=== PATIENT | male | born 1990 | race Caucasian/White ===

== ENCOUNTER 2016-06-25 17:59 | Inpatient (IN) ==
[2016-06-25] MEDS ORDERED: Ondansetron 4 MG/2 ML VIAL IVP ONE (18:47)
[2016-06-25] MEDS ORDERED: 0.9 % Sodium Chloride 1,000 ML IVC ONE (18:47)
[2016-06-25] MEDS ORDERED: *HR* FentaNYL (PF) 100 MCG/2 ML VIAL IVP ONE (18:49)
--- NOTE | 2016-06-25 18:59 | Emergency Department Note ---
Disposition Clinical Impression: Calculus of kidney Disposition: Admitted As Inpatient Condition: Good Time of Disposition: 20:42 Abdominal Pain HPI - General Stated Complaint: RLQ Pain Time Seen by Provider: 06/25/16 18:08 Source: patient, family Nursing Notes Reviewed: Yes Vital Signs Reviewed: Yes - History of Present Illness HPI Narrative: Patient complaining of three-week history of right lower quadrant pain. He reports chills nausea vomiting with this and diarrhea. He states he has hematuria.. He has a pain that he describes right now as an aching. He states is about a 3 out of 10 but previously today was a 10 out of 10. He gets more pain whenever he tries to move. There are no alleviating factors. The pain does not radiate. Pain Scale: 10 - Related Data Home Medications Medication Instructions Recorded Confirmed CarBAMazepine [Tegretol] 800 mg PO HS 06/25/16 06/25/16 Lacosamide [Vimpat] 200 mg PO BID 06/25/16 06/25/16 Zonisamide [Zonegran] 200 mg PO HS 06/25/16 06/25/16 Allergies Allergy/AdvReac Type Severity Reaction Status Date / Time No Known Allergies Allergy Verified 03/18/16 20:15 Review of Systems: Patient states he has not checked his temperature however he has had chills. He denies a headache or blurry vision. He denies any trouble swallowing. He does report nausea vomiting diarrhea for 3 weeks. This is inconsistent with his right lower quadrant abdominal pain. He describes it currently as an ache. He states the pain gets worse whenever he tries to move. He also reports hematochezia but no episodes within the last week.. He also reports hematuria. He is also reporting a yellow stool with diarrhea. He denies any swelling numbness or tingling to his extremities. He denies any shortness of breath at this time. He states he does have hemoptysis that he has had "worked up." All systems ED: reviewed and negative except as stated. Abdominal Pain PMH - Past Medical History Medical history: Reports: seizures, other Psychiatric history: Reports: anxiety, depression, panic disorder - Social History Smoking status: Current every day smoker Alcohol use: Reports: none Drug use: Reports: cocaine, opiates, IVDU Physical Exam - General Limitations: no limitations General appearance: alert, in no apparent distress - Head Head exam: atraumatic, normocephalic, normal inspection - Eye Eye exam: Present: normal appearance, PERRL, EOMI. Absent: scleral icterus - ENT ENT exam: normal exam, normal oropharynx, mucous membranes moist - Neck Neck exam: Present: normal inspection, full ROM, trachea midline - Chest Chest inspection: Present: normal inspection, symmetric chest wall rise, other ( Tenderness on palpation. History of sternal fracture. Chronic.) - Cardiovascular Cardiovascular exam: Present: regular rate, normal rhythm, normal heart sounds - Abdominal Exam Abdominal exam: Present: soft, tenderness (To palpation of right lower quadrant. ), guarding (When palpating right lower quadrant.), normal bowel sounds. Absent : rebound, rigidity, Cervantes's sign, Rovsing's sign, tenderness at McBurney's Point - Extremities Exam Extremities exam: Present: normal inspection, full ROM, normal capillary refill. Absent: tenderness, pedal edema - Back Exam Back exam: Present: normal inspection, full ROM, CVA tenderness (R). Absent: tenderness, CVA tenderness (L) - Neurological Exam Neurological exam: Present: alert, oriented X3 - Psychiatric Psychiatric exam: Present: normal affect, anxious - Skin Skin exam: Present: warm, dry, intact, normal color Course Course Narrative: Well-appearing male holding the right side of his abdomen complaining of pain for 3-4 weeks. States he is having trouble urinating and has hematuria. He is also combining of nausea and vomiting. He states he has had diarrhea. He states he cannot keep any fluids or food down. He states that he is in pain at this time but it has been worse. He describes it as a 3 out of 10 that is an ache in his right lower quadrant. He does not appear as if he can get comfortable on the cot. He is not febrile while he is here however he states he has had chills at home. Basic lab work was done as well as EKG and CT. CT showed an obstructing right renal stone in the proximal ureter measuring 1.4 cm with moderate to severe hydronephrosis. Patient's creatinine is increased. We have consulted with urology and they will admit patient for pain control and symptom management. - Reevaluation(s) Reevaluation #1: Patient was given fentanyl initially for pain. He states this did help minimally with his pain. He initially refused any more medication. Later in his visit he states his pain did increase so we have ordered Dilaudid. He denies any nausea or vomiting at this time. Reevaluation #2: Patient states he is still in pain. We will order additional Dilaudid as well as a dose of Toradol. Time: 21:03 - Consultations Consultation #1: Spoke with Dr. Davis. He states he will admit the patient to his service. Time: 20:35 Vital Signs Temperature 97.5 F L 06/25/16 18:00 Pulse Rate 108 06/25/16 18:00 Respiratory Rate 18 06/25/16 18:00 Blood Pressure 183/109 06/25/16 18:00 O2 Sat by Pulse Oximetry 98 06/25/16 18:00 Temperature 97.5 F L 06/25/16 18:00 Pulse Rate 108 06/25/16 18:00 Respiratory Rate 18 06/25/16 18:00 Blood Pressure 183/109 06/25/16 18:00 O2 Sat by Pulse Oximetry 98 06/25/16 18:00 Oxygen Delivery Oxygen Delivery Room Air Abdominal Pain - Medical Records Medical records reviewed: Yes I reviewed the patient's medical records. - Lab Data Lab results reviewed: Yes I reviewed the patient's lab results. Result diagrams: 06/25/16 19:05 06/25/16 19:05 Lab Results 06/25/16 06/25/16 06/25/16 Range/Units 19:05 19:05 19:16 WBC 10.1 (4.3-11.1) K/mcL RBC 5.02 (4.19-5.50) M/mcL Hgb 14.7 (12.9-16.9) g/dL Hct 42.7 (37.5-50.1) % MCV 85.1 (83.0-100.0) fL MCH 29.3 (28.0-33.3) pg MCHC 34.4 (31.6-35.5) g/dL RDW 11.8 (11.5-14.5) % Plt Count 336 (140-400) K/mcL MPV 9.3 L (9.4-12.4) fL Immature Gran % 0.6 (0-4) % Seg Neutrophils % 73.1 % Lymphocytes % 17.6 % Monocytes % 7.8 % Eosinophils % 0.3 % Basophils % 0.6 % Neutrophils # 7.4 (1.6-8.9) K/mcL Lymphocytes # 1.8 (0.6-4.6) K/mcL Monocytes # 0.8 (0.0-1.3) K/mcL Eosinophils # 0.0 (0.0-0.6) K/mcL Basophils # 0.1 (0.0-0.2) K/mcL Immature Plt Fraction 3.6 (1.1-6.1) % Sodium 138 (136-145) mEq/L Potassium 3.7 (3.5-4.5) mEq/L Chloride 106 (98-109) mEq/L Carbon Dioxide 21 (19-29) mEq/L BUN 11 (8-26) mg/dL Creatinine 1.76 H (0.72-1.25) mg/dL Est GFR ( Amer) 57 L (> 60) Est GFR (Non-Af Amer) 47 L (> 60) BUN/Creatinine Ratio 6 (6-26) Glucose 121 H (70-99) mg/dL Calculated Osmolality 287 (280-300) Calcium 8.9 (8.6-10.8) mg/dL Total Bilirubin 0.6 (0.2-1.2) mg/dL Direct Bilirubin 0.1 (0.0-0.5) mg/dL Indirect Bilirubin 0.5 (0.0-1.2) mg/dL AST 9 (5-34) Units/L ALT 9 (0-55) Units/L Alkaline Phosphatase 121 (38-126) Units/L Serum Total Protein 7.2 (6.0-8.3) g/dL Albumin 4.2 (3.5-5.0) g/dL Globulin 3.0 (2.4-3.5) g/dL Albumin/Globulin Ratio 1.4 (1.1-2.2) Lipase 7 L (8-78) Units/L Urine Color Yellow (Yellow) Urine Clarity Clear (Clear) Urine pH 7.5 (5.0-8.0) pH Units Ur Specific [place] 1.013 (1.010-1.025) Urine Protein Negative (Neg-Trace) mg/dL Urine Glucose (UA) Normal (Normal) mg/dL Urine Ketones Negative (Negative) mg/dL Urine Blood Negative (Negative) Urine Nitrite Negative (Negative) Urine Bilirubin Negative (Negative) Urine Urobilinogen Normal (Normal) mg/dL Ur Leukocyte Esterase Negative (Negative) Ur Culture Indicated? NO (NO) - Radiology Data Radiology results reviewed: Yes I reviewed the patient's radiology results. I reviewed the images and the radiologist report. - EKG Data EKG attestation: Yes I reviewed and interpreted this EKG. EKG results narrative: Normal sinus rhythm at a rate of 83. CA interval is 169. QRS duration is 104. QT is 343. QTC is 383. No signs of acute ischemia. No Change from prior EKG dated 06/23/2015.
--- NOTE | 2016-06-25 19:04 | Emergency Department Note ---
START Narrative - START START: I examined this patient and my medical decision-making was reviewed with the PHLEBOTOMIST MEDICAL LAB ASSISTANT/PA/Advanced Practice Nurse/Resident Physician. I agree with the documented findings, disposition and treatment plan as described except to the extent set forth below. ED attending note: Patient seen with emergency medicine resident Dr Ross. We independently evaluated the patient. We independently had [id number] contact with the patient. Please see a copy of his note for details of the history and physical, evaluation, management and disposition of this emergency Department patient. 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 He has tenderness in the right lower quadrant voluntary guarding but no rebound. Has other symptoms such as possibly hematuria and bilious vomiting. He is afebrile with stable vital signs. Patient will get labs IV analgesics urinalysis and noncontrast abdominal pelvic CT scan. Disposition pending.
[2016-06-25 19:11] LABS: Basophils # 0.1 K/mcL (0.0-0.2); Basophils % 0.6 %; Eosinophils % 0.3 %; Hematocrit 42.7 % (37.5-50.1); Hemoglobin 14.7 g/dL (12.9-16.9); Immature Granulocytes % 0.6 % (0-4); Immature Platelets 3.6 % (1.1-6.1); Lymphocytes # 1.8 K/mcL (0.6-4.6); Lymphocytes % 17.6 %; Mean Corpuscular HGB Conc 34.4 g/dL (31.6-35.5); Mean Corpuscular Hemoglobin 29.3 pg (28.0-33.3); Mean Corpuscular Volume 85.1 fL (83.0-100.0); Mean Platelet Volume 9.3 fL (9.4-12.4); Monocytes # 0.8 K/mcL (0.0-1.3); Monocytes % 7.8 %; Neutrophils # 7.4 K/mcL (1.6-8.9); Platelet Count 336 K/mcL (140-400); Red Blood Count 5.02 M/mcL (4.19-5.50); Red Cell Distribution Width 11.8 % (11.5-14.5); Segmented Neutrophils % 73.1 %
[2016-06-25 19:21] LABS: Bilirubin,Urine Negative (Negative); Blood,Urine Negative (Negative); Clarity,Urine Clear (Clear); Color,Urine Yellow (Yellow); Glucose,Urine (UA) Normal (Normal); Ketones,Urine Negative (Negative); Leukocyte Esterase,Urine Negative (Negative); Nitrite,Urine Negative (Negative); PH,Urine 7.5 pH Units (5.0-8.0); Protein,Urine Negative (Neg-Trace); Specific Gravity,Urine 1.013 (1.010-1.025); Urobilinogen,Urine Normal (Normal)
[2016-06-25 19:24] LABS: Albumin 4.2 g/dL (3.5-5.0); Albumin/Globulin Ratio 1.4 (1.1-2.2); Bilirubin,Direct 0.1 mg/dL (0.0-0.5); Bilirubin,Indirect 0.5 mg/dL (0.0-1.2); Bilirubin,Total 0.6 mg/dL (0.2-1.2); Calcium 8.9 mg/dL (8.6-10.8); Potassium 3.7 mEq/L (3.5-4.5); Total Protein 7.2 g/dL (6.0-8.3)
[2016-06-25] MEDS ORDERED: *HR* HYDROmorphone (PF) 1 MG/ML SYRINGE IVP ONE ×2 (20:13→21:01)
[2016-06-25] MEDS ORDERED: *HR* Promethazine 25 MG/ML VIAL IVP PRN (20:58)
[2016-06-25] MEDS ORDERED: Ondansetron 4 MG/2 ML VIAL IVP PRN (20:58)
[2016-06-25] MEDS ORDERED: *HR* Morphine 2 MG/ML SYRINGE IVP PRN (20:58)
[2016-06-25] MEDS ORDERED: Naloxone 0.4 MG/ML INJ IVP PRN (20:58)
[2016-06-25] MEDS ORDERED: Ketorolac 15 MG/ML VIAL IVP ONE (21:02)
--- NOTE | 2016-06-25 21:03 | Urology History & Physical ---
Date of Encounter: 06/26/16 Time of Encounter: 07:06 Assessment and Plan (1) Ureteral stone with hydronephrosis Current Visit: Yes Status: Acute options discussed. will need to proceed with intervention bc of pain and renal insufficiency. will need to proceed with stent and staged ESWL or stone extraction in the future (2) Acute renal insufficiency Current Visit: Yes Status: Acute proceed with ureteral stent. IVF History of Present Illness Chief complaint: right flank pain HPI: Mr. Hutchinson is a 25 year old male 3 weeks of flank pain. 1.4 cm proximal ureteral stone with hydronephrosis. severe pain and uncontrolled n/v Past Med Surg Social Fam HX - Past Medical History Medical history: seizures, other Psychiatric history: anxiety, depression, panic disorder - Social History Smoking Status: Current every day smoker Alcohol use: none Drug use: cocaine, opiates, IVDU Medications and Allergies CarBAMazepine [Tegretol] 800 mg PO HS 06/25/16 [History] Lacosamide [Vimpat] 200 mg PO BID 06/25/16 [History] Zonisamide [Zonegran] 200 mg PO HS 06/25/16 [History] Allergies No Known Allergies Allergy (Verified 03/18/16 20:15) Review of Systems - Constitutional no chills, no fever(s) - EENT Nose, mouth and throat: no dizziness - Cardiovascular no chest pain - Respiratory no cough - Gastrointestinal abdominal pain, nausea, vomiting - Genitourinary flank pain - Musculoskeletal back pain - Integumentary no erythema - Neurological no confusion - Psychiatric no anxiety - Hematologic/Lymphatic no easy bleeding - Allergic/Immunologic no throat swelling Exam Initial Vital Signs Temp Pulse Resp BP Pulse Ox 97.5 F L 108 18 183/109 98 06/25/16 18:00 06/25/16 18:00 06/25/16 18:00 06/25/16 18:00 06/25/16 18:00 - General physical appearance Present: moderate pain - Eyes Present: PERRL - ENT Present: normal nares - Neck Present: no masses - Respiratory Present: normal respiratory effort - Cardiovascular Cardiovascular exam IM: tachycardia - Abdomen Abdomen: Present: soft - Integumentary Present: no rash - Neurologic Present: normal coordination. Absent: disoriented, confused - Musculoskeletal Present: normal gait Urology Results - Labs 06/25/16 19:05 06/25/16 19:05 Abnormal lab results MPV 9.3 fL (9.4-12.4) L 06/25/16 19:05 Creatinine 1.76 mg/dL (0.72-1.25) H 06/25/16 19:05 Est GFR ( Amer) 57 (> 60) L 06/25/16 19:05 Est GFR (Non-Af Amer) 47 (> 60) L 06/25/16 19:05 Glucose 121 mg/dL (70-99) H 06/25/16 19:05 Lipase 7 Units/L (8-78) L 06/25/16 19:05 All other labs normal.
[2016-06-25] MEDS: 0.9 % Sodium Chloride 1,000 ML IVC SCH (22:37)
[2016-06-25] MEDS: *HR* HYDROmorphone (PF) 1 MG/ML SYRINGE IVP PRN (22:39)
[2016-06-26] MEDS: *HR* HYDROmorphone (PF) 1 MG/ML SYRINGE IVP PRN ×6 (03:20→16:54)
[2016-06-26] MEDS: 0.9 % Sodium Chloride 1,000 ML IVC SCH (09:00)
[2016-06-26] MEDS ORDERED: Nicotine 21 MG PATCH.TD24 TD SCH (09:00)
--- NOTE | 2016-06-26 18:28 | Discharge Summary ---
Date of Encounter: 06/26/16 Time of Encounter: 18:23 - Discharge Diagnosis (1) Ureteral stone with hydronephrosis Priority: Primary Status: Resolved (2) Acute renal insufficiency Priority: Secondary Status: Acute - Discharge Medications Prescriptions: Oxycodone HCl/Acetaminophen [Percocet 5-325 mg Tablet] 1 each PO Q6H PRN #20 tablet PRN Reason: Pain Phenazopyridine HCl [Pyridium] 200 mg PO TIDAC PRN #20 tab PRN Reason: burning with urination Home Medications: CarBAMazepine [Tegretol] 800 mg PO HS 06/25/16 [History] Lacosamide [Vimpat] 200 mg PO BID 06/25/16 [History] Zonisamide [Zonegran] 200 mg PO HS 06/25/16 [History] Oxycodone HCl/Acetaminophen [Percocet 5-325 mg Tablet] 1 each PO Q6H PRN #20 tablet 06/26/16 [Rx] Phenazopyridine HCl [Pyridium] 200 mg PO TIDAC PRN #20 tab 06/26/16 [Rx] Allergies/Adverse Reactions: Allergies No Known Allergies Allergy (Verified 03/18/16 20:15) Date of admission: 06/26/16 16:14 Primary care physician: PCP NO Discharging clinician: Jac Davis Anticipated date of discharge: 06/26/16 - Patient Status Disposition: Home, Self-Care Condition: Good Functional capacity at discharge: independent ambulation Overall status at discharge: patient is progressing back to baseline - Discharge Instructions Follow Up With: NO,PCP [Primary Care Provider] - Jac Davis MD [Partnered Physician] - (my office will call to schedule stone procedure. ) Additional Instructions: expect stent discomfort including urgency, frequency, burning and blood in the urine. call if fever over 101 my office will call to schedule stone procedure. call with any questions. - Diet and Activity Activity: increase activity as tolerated Diet: advance to your usual diet - Hospital Course Hospital course: Mr. Hutchinson is a 25 year old male s/p stent placement for an obstructing ureteral stone. ok for discharge after procedure. will follow for definitive treatment of stone. Time spent discussing smoking cessation with patient: 3 to 10 minutes - Time Spent with Patient Total time spent providing and/or coordinating discharge services: Less than 30 minutes Exam Initial Vital Signs Temp Pulse Resp BP Pulse Ox 97.5 F L 108 18 183/109 98 06/25/16 18:00 06/25/16 18:00 06/25/16 18:00 06/25/16 18:00 06/25/16 18:00 - General physical appearance Present: well developed, no distress - VTE Documentation of Mechanical Device: Intermittent pneumatic compression device
--- NOTE | 2016-06-26 18:30 | Anesthesia Evaluation PreOp ---
Date of Encounter: 06/26/16 Time of Encounter: 18:28 - Past History Planned Operation: R-ureteral stent insertion Cardiac History: Denies any Significant Hx Pulmonary History: Smoker, Other (Bronchoscopy 06/2015 re: right lung mass & Hemoptysis. 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: Seizures (maintained on Tegretol, Vimpat, Zonegran), Other (Anxiety /depression) Other Medical History: Renal ([place]) Anesthesia History: No Prior Anesthetic Complications, Past Anesthesia ( Bronchoscopy) Alcohol Use: none Drug use: cocaine, opiates, IVDU, other (DENIES ANY DRUG USE) Medications and Allergies CarBAMazepine [Tegretol] 800 mg PO HS 06/25/16 [History] Lacosamide [Vimpat] 200 mg PO BID 06/25/16 [History] Zonisamide [Zonegran] 200 mg PO HS 06/25/16 [History] Oxycodone HCl/Acetaminophen [Percocet 5-325 mg Tablet] 1 each PO Q6H PRN #20 tablet 06/26/16 [Rx] Phenazopyridine HCl [Pyridium] 200 mg PO TIDAC PRN #20 tab 06/26/16 [Rx] Allergies No Known Allergies Allergy (Verified 03/18/16 20:15) - Meds/Allergy Pre-op Review Medications Reviewed: Yes Allergies Reviewed: Yes Beta Blockers on Current Med List: No Anesthesia Results - Labs 06/25/16 19:05 06/25/16 19:05 Laboratory Tests 06/25/16 19:05 Est GFR (Non-Af Amer) 47 L Glucose 121 H Laboratory Results Impressions Abdomen/Pelvis CT 06/25/16 19:38 IMPRESSION: 1.4 cm obstructing proximal right ureteral stone causing moderate to severe right-sided hydronephrosis D/ / Chevy Duque MD / Chevy Duque MD Interpreting Provider: Chevy Duque MD - Imaging EKG: image reviewed (81bpm non-specific ST-T abnormality) Anesthesia Exam Vital Signs Temp Pulse Resp BP Pulse Ox 06/26/16 16:30 97.7 F 66 18 169/89 99 06/26/16 12:05 137/75 06/26/16 11:15 98.0 F 70 14 165/95 97 06/26/16 07:46 98.0 F 62 15 165/85 97 06/26/16 03:25 97.8 F 73 14 151/66 98 06/25/16 21:54 75 18 154/98 96 06/25/16 21:21 16 168/92 Intake and Output 06/26/16 06/26/16 06/26/16 07:59 15:59 23:59 Intake Total 0 / 0 2099 Output Total 0 / 0 350 / 350 Balance 0 / 0 2099 -350 / -350 Intake: IV Fluids 2099 0.9 % Sodium Chloride 1, 1000 / 1000 000 ML @ 100 mls/hr IVC . Q10H [facility] Rx#:[id number] Rocephin 1,000 MG In 100 / 100 Dextrose 5% (Minibag+) 100 ML 100 ML @ 200 mls/ hr IVPB DAILY [facility] Rx#: [id number] Oral 0 / 0 0 / 0 Output: Urine 0 / 0 350 / 350 Other: Meal NPO/BREAKFAST Percent of Meal Consumed 0% Weight 91.371 kg Patient Weight 06/26/16 23:59 Weight 91.371 kg Height: 6'1" Weight: 201" NPO (# of Hours): Mnoc - HEENT Pupil (Motor): Pupils equal, EOMI Mallampati: II Teeth: Poor dentition Oral Opening: Greater than 3 - REFRIGERATING ENGINEER HEAD LOC: Oriented REFRIGERATING ENGINEER HEAD Motor: Normal RUE, Normal LUE, Normal RLE, Normal LLE, Normal Face REFRIGERATING ENGINEER HEAD Sensory: Normal: RUE, LUE, RLE, LLE, Face - Cardiac Rhythm: Regular Murmur: None - Pulmonary Breath Sounds: bilateral Clear Respiratory Effort: Symmetrical Anesthesia Assess/Plan ASA Score: 3 (IVDU/Cocaine/polysubstance abuse, Smoker, Seizure d/o) Modified Ingraham Scale for Level of Consciousness: Cooperative, oriented, and tranquil Anesthetic Plan: General Monitoring Plan: Standard Monitors Recovery Plan: PACU Anes Supervising Prov Stmt: Pt seen/evaluated, R&B discussed, questions answered and consent pt agrees to proceed. Syed Carter MD
[2016-06-26] MEDS ORDERED: *HR* Succinylcholine 200 MG/10 ML VIAL IVP ONE (18:37)
[2016-06-26] MEDS ORDERED: Lidocaine -MPF 4% 5 ML AMPUL ONE (18:37)
[2016-06-26] MEDS ORDERED: Dexamethasone 4 MG/ML VIAL ONE (18:37)
[2016-06-26] MEDS ORDERED: Lidocaine -MPF 2% 2 ML VIAL ONE (18:37)
[2016-06-26] MEDS ORDERED: *HR* Midazolam HCl 2 MG/2 ML VIAL ONE (18:37)
[2016-06-26] MEDS ORDERED: *HR* FentaNYL (PF) 100 MCG/2 ML VIAL ONE (18:37)
[2016-06-26] MEDS ORDERED: Neostigmine Methylsulfate 3 MG/3 ML SYRINGE ONE (18:37)
[2016-06-26] MEDS ORDERED: *HR* Rocuronium Bromide 50 MG/5 ML VIAL ONE (18:37)
[2016-06-26] MEDS ORDERED: *HR* Propofol 200 MG/20 ML VIAL IVP ONE (18:37)
[2016-06-26] MEDS ORDERED: Ondansetron 4 MG/2 ML VIAL ONE (18:37)
--- NOTE | 2016-06-26 18:42 | Operative Note ---
Date of procedure: 06/26/16 Pre-op diagnosis: right 1.4 cm UPJ stone Post-op diagnosis: same Procedure: cystoscopy right retrograde pyelogram and JJ stent placement Anesthesia: GETA Surgeon: Jac Davis Estimated blood loss (cc): 0 Specimen: none Condition: stable Disposition: PACU Procedure in Detail: pt was taken to OR and placed supine. anesthesia applied without complication. moved to dorsal lithotomy. prepped and draped in sterile fashion. time out to confirm proper pt and procedure. 21 rigid cystoscope inserted and bladder normal. 5 kosovan flexitip cath inserted into right UO. retrograde pyelogram confirmed the stone. zip wire placed and 4.8x28 stent placed without complication. bladder drained and procedure stopped.
[2016-06-26] MEDS ORDERED: Acetaminophen IV 1,000 MG/100 ML INFUS..BTL ONE (18:59)
--- NOTE | 2016-06-26 20:23 | Anesthesia Evaluation Post Op ---
Date of Encounter: 06/26/16 Time of Encounter: 20:20 - Vital Signs Vital Signs: Vital Signs/O2 Sat, Most Current Temp Pulse Resp BP Pulse Ox 97 F L 44 14 130/92 100 06/26/16 19:46 06/26/16 20:06 06/26/16 20:06 06/26/16 20:06 06/26/16 20:06 - Lungs Lungs: Clear Ascult./Percussion - Airway Airway: Non-obstructed - Cardiovascular Regular Rate - Mental Status Mental Status: Alert & Oriented, Answers Appropriately - Pain Pain Scale: 4 Pain Scale used: Numeric (1 - 10) - Nausea Vomiting Nausea Vomiting: Not Present - Hydration Hydration: Ice chips, Has not voided - Discharge PostOp Status: Transfer Patient to floor
[2016-06-26] MEDS ORDERED: carBAMazepine 200 MG TABLET PO SCH (21:00)
[2016-06-26] MEDS ORDERED: *HR* Promethazine 25 MG/ML VIAL IVP PRN (21:55)
[2016-06-26] MEDS ORDERED: Naloxone 0.4 MG/ML INJ IVP PRN (21:55)
[2016-06-26] MEDS ORDERED: *HR* OxyCODONE/APAP 5/325 TABLET PO PRN (21:55)
[2016-06-26] MEDS ORDERED: *HR* HYDROmorphone (PF) 1 MG/ML SYRINGE IVP PRN (21:55)
[2016-06-26] MEDS ORDERED: Ondansetron 4 MG/2 ML VIAL IVP PRN (21:55)
[2016-06-26] MEDS ORDERED: *HR* Morphine 2 MG/ML SYRINGE IVP PRN (21:55)
[2016-06-26 23:04] VITALS: BP 162/104
[2016-06-27] MEDS ORDERED: Nicotine 21 MG PATCH.TD24 TD SCH (09:00)
--- NOTE | 2016-06-27 12:44 | Electrocardiograph Report ---
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
[2016-06-27] MEDS ORDERED: carBAMazepine 200 MG TABLET PO SCH (21:00)
== END 2016-06-26 22:11 | disposition home or self-care (01) | DRG 465 ==
LOC: EMEROO 17:59 → 3ANU 17:59
PROVIDERS: ADMIT Urology; ATTEND Urology